=== PATIENT | male | born 1985 | race Caucasian/White ===

== ENCOUNTER 2019-09-12 17:13 | Inpatient (IN) | payer BC ==
--- NOTE | 2019-09-09 20:50 | NUR ---
Dr. Turcios contacted for patients v/s. BP 127/63, O2 sat 100 on 2L on Room Air. HR: 98, RR: 40, and s/s of SOB.
[~2019-09-12] VITALS: Ht 188 cm; Wt 86.2 kg
[2019-09-12] MEDS ORDERED: IV NORMAL SALINE 1000 ML BAG IV ONE ×2 (17:30→18:15)
[2019-09-12 17:35] LABS: BASOPHILS # (AUTO) 0.1 K/uL (0.0-8.0); BASOPHILS % (AUTO) 0.6 % (0.0-2.0); EOSINOPHILS % (AUTO) 0.4 % (0.0-7.0); HEMATOCRIT 24.6 % (36.7-47.1); HEMOGLOBIN 7.6 g/dL (12.5-16.3); LYMPHOCYTES # (AUTO) 2.1 K/uL (20.0-40.0); LYMPHOCYTES % (AUTO) 18.4 % (20.5-51.5); MEAN CORPUSCULAR HEMOGLOBIN 20.2 uug (23.8-33.4); MEAN CORPUSCULAR HGB CONC 31 g/dL (32.5-36.3); MEAN CORPUSCULAR VOLUME 65.8 fL (73.0-96.2); MONOCYTES # (AUTO) 1.1 K/uL (2.0-10.0); MONOCYTES % (AUTO) 9.2 % (0.0-11.0); NEUTROPHILS # (AUTO) 8.3 K/uL (1.8-8.9); NEUTROPHILS % (AUTO) 71.4 % (38.5-71.5); PLATELET COUNT (AUTO) 293 K/uL (152-348); RED BLOOD CELL COUNT(AUTO) 3.74 MIL/uL (4.06-5.63); WHITE BLOOD COUNT (AUTO) 11.6 K/uL (3.6-10.2)
[2019-09-12 17:50] LABS: ALANINE AMINOTRANSFERASE 39 U/L (16-63); ALKALINE PHOSPHATASE 85 U/L (50-136); ASPARTATE AMINOTRANSFERASE 45 U/L (15-37); BILIRUBIN,DIRECT 0.1 mg/dL (0.0-0.2); BILIRUBIN,TOTAL 0.9 mg/dL (0.2-1.0); CARBON DIOXIDE 27 mmol/L (21-32); CHLORIDE 95 mmol/L (98-107); CREATININE 0.9 mg/dL (0.6-1.3); GLUCOSE 85 mg/dL (74-106); POTASSIUM 4.3 mmol/L (3.5-5.1); TOTAL PROTEIN, SERUM 6.9 g/dL (6.4-8.2); UREA NITROGEN, BLOOD 17 mg/dL (7-18)
--- NOTE | 2019-09-12 17:50 | NUR ---
CHRISTY CASE was called. Patient was seen standing unsteadily and attempting to walk away from his gurney, mumbling words heard & does not follow simple commands.
[2019-09-12 17:52] LABS: ETHANOL < 3 MG/DL (0-0)
[2019-09-12] MEDS ORDERED: diphenhydrAMINE 50 MG/1 ML VIAL ONE (17:53)
[2019-09-12] MEDS ORDERED: OLANZAPINE 10 MG VIAL IM ONE ×2 (17:53→18:00)
--- NOTE | 2019-09-12 17:57 | NUR ---
Jennifer Downing/ called back. Per , she is currently in OR. Pt travelled to [place] to get treatment for Substance Abuse and Mental Health issues. provided patient history.
[2019-09-12 17:59] LABS: ACETAMINOPHEN < 2.0 ug/mL (10-30)
[2019-09-12] MEDS ORDERED: diphenhydrAMINE 50 MG/1 ML VIAL IM ONE (18:00)
[2019-09-12 18:11] LABS: *BLOOD, URINE NEGATIVE (NEGATIVE); *CLARITY,URINE CLEAR (CLEAR); *COLOR,URINE DARK YELLOW (YELLOW); *KETONES,URINE TRACE (NEGATIVE); LEUKOCYTE ESTERASE ,URINE NEGATIVE (NEGATIVE); NITRITE, URINE NEGATIVE (NEGATIVE); PH,URINE 5.5 (5.0-8.0); UGLUCOSE NEGATIVE (NEGATIVE)
[2019-09-12] MEDS ORDERED: PANTOPRAZOLE SODIUM 40 MG VIAL ONE (18:14)
[2019-09-12] MEDS ORDERED: PANTOPRAZOLE SODIUM 40 MG VIAL IV ONE (18:15)
[2019-09-12 18:21] LABS: *BILIRUBIN,URIN 1+ (NEGATIVE)
[2019-09-12 18:31] LABS: BAND % (MANUAL) 4 % (0-10); LYMPHOCYTES % (MANUAL) 20 % (20-40); MONOCYTES % (MANUAL) 3 % (2-10); NEUTROPHILS % (MANUAL) 73 % (42-75)
[2019-09-12 18:32] LABS: BACTERIA,URINE NONE SEEN /HPF (NONE SEEN); RBC,URINE 0-3 /HPF (0-3); SQUAMOUS EPITHELIAL CELL,UR FEW /HPF (NONE SEEN); WBC,URINE 0-3 /HPF (0-3)
[2019-09-12 18:46] LABS: *AMPHETAMINE, URINE POSITIVE (NEGATIVE); *BARBITURATE, URINE NEGATIVE (NEGATIVE); *CANNABINOID, URINE NEGATIVE (NEGATIVE); *COCCAINE, URINE NEGATIVE (NEGATIVE); *OPIATE, URINE POSITIVE (NEGATIVE); *PHENCYCLIDINE SCREEN,URINE NEGATIVE (NEGATIVE)
[2019-09-12] MEDS ORDERED: LORAZEPAM 2 MG/1 ML VIAL ONE (19:34)
[2019-09-12] MEDS ORDERED: MORPHINE SULFATE 2 MG/1 ML DISP.SYRIN IV PRN (20:30)
[2019-09-12] MEDS ORDERED: ONDANSETRON 4 MG/2 ML VIAL IV PRN (20:30)
[2019-09-12] MEDS ORDERED: LORAZEPAM 2 MG/1 ML VIAL IV PRN ×2 (20:30→21:30)
[2019-09-12] MEDS ORDERED: HALOPERIDOL LACTATE 5 MG/1 ML VIAL IM PRN (20:30)
[2019-09-12] MEDS ORDERED: ACETAMINOPHEN 325 MG TABLET PO PRN (20:30)
[2019-09-12] MEDS ORDERED: PIPERACILLIN SODIUM/TAZOBACTAM 3.375 G in IV DEXTROSE 5% 50 ML IV ONE (20:30)
--- NOTE | 2019-09-12 20:30 | NUR ---
Pt sent down to [place], RN at bedside.
[2019-09-12 20:43] LABS: IRON, SERUM 12 ug/dL (50-175)
--- NOTE | 2019-09-12 20:55 | NUR ---
patient received from ER. ID band on. IV patent and intact. belongings list completed. patient a/o x1. will continue to monitor and complete admissions process.
--- NOTE | 2019-09-12 21:00 | NUR ---
Dr. Turcios placed orders for droplet isolation. stat COVID-19 swab for throat and nose. start plaqenil 400 mg by mouth twice daily (tonight and tomorrow in AM) and 200 mg by mouth for 4 days afterwards. start zithromax 500 mg IV daily- give first dose now.
--- NOTE | 2019-09-12 21:16 | NUR ---
Pt. admitted to [facility] , under care of Dr. FLETCHER Belongs List completed. No acute distress noted. Safety precautions maintained.
[2019-09-12] MEDS ORDERED: PIPERACILLIN/TAZOBACTAM/D5W 100 ML IV ONE (21:41)
[2019-09-12] MEDS ORDERED: AZITHROMYCIN IV 500 MG in IV DEXTROSE 5% 250 ML IV SCH (21:45)
[2019-09-12] MEDS ORDERED: HYDROXYCHLOROQUINE SULFATE 200 MG TABLET PO SCH (21:45)
[2019-09-12 22:00] VITALS: BP 127/63
[2019-09-12] MEDS ORDERED: AZITHROMYCIN 500 MG VIAL IV ONE (22:06)
[2019-09-12] MEDS ORDERED: HYDROXYCHLOROQUINE SULFATE 200 MG TABLET ONE (22:11)
[2019-09-13] VITALS: BP 124/73
[2019-09-13] MEDS ORDERED: PIPERACILLIN SODIUM/TAZOBACTAM 3.375 G in IV DEXTROSE 5% 50 ML IV ONE ×2
[2019-09-13] MEDS ORDERED: PIPERACILLIN SODIUM/TAZOBACTAM 3.375 G in IV NORMAL SALINE 50 ML IV SCH (04:00)
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
[2019-09-13 05:52] LABS: BASOPHILS % (AUTO) 0.7 % (0.0-2.0); EOSINOPHILS # (AUTO) 0.1 K/uL (0.0-0.7); EOSINOPHILS % (AUTO) 1.5 % (0.0-7.0); HEMATOCRIT 25.1 % (36.7-47.1); HEMOGLOBIN 7.8 g/dL (12.5-16.3); LYMPHOCYTES # (AUTO) 2.1 K/uL (20.0-40.0); LYMPHOCYTES % (AUTO) 30.7 % (20.5-51.5); MEAN CORPUSCULAR HEMOGLOBIN 20.5 uug (23.8-33.4); MEAN CORPUSCULAR HGB CONC 31 g/dL (32.5-36.3); MEAN CORPUSCULAR VOLUME 66.4 fL (73.0-96.2); MONOCYTES # (AUTO) 0.7 K/uL (2.0-10.0); MONOCYTES % (AUTO) 9.4 % (0.0-11.0); NEUTROPHILS % (AUTO) 57.7 % (38.5-71.5); PLATELET COUNT (AUTO) 292 K/uL (152-348); RED BLOOD CELL COUNT(AUTO) 3.78 MIL/uL (4.06-5.63)
--- NOTE | 2019-09-13 06:00 | NUR ---
NURSING LIDDING MACHINE OPERATOR ADVISED OF PATIENT LEAVING AMA.
--- NOTE | 2019-09-13 06:05 | NUR ---
PATIENT LEFT AMA. ID BAND OFF. TRIED TO TAKE OUT IV LINE FROM PATIENT AND PATIENT JUST TOOK IT OFF BEFORE RN WAS ABLE TO. V/S STABLE AT TIME OF AMA. BP: 129/60, HR: 89, O2 SAT 100 ON 2L NC, RR: 18. PATIENT REFUSED TEMPERATURE. NO S/S OF ACUTE DISTRESS. NO SOB. PATIENT GAIT WAS WEAK AND UNABLE TO BALANCE HIMSELF. RN INFORMED PATIENT TO SIT DOWN PATIENT REFUSED. ADDITIONALLY, PATIENT WAS INFORMED TO GO TO LOBBY IN WHEELCHAIR, PATIENT REFUSED. PATIENT SIGNED [place] PAPERWORK AND BELONGINGS LIST. ASL INTERPRETER WALKED PATIENT OUT OF [facility] SAFELY. MASK WAS PLACED ON PATIENT WHEN LEAVING. Addendum: 09/13/19 at 0649 by J LUIS BARBOZA RN TELE MONITOR NSR AT TIME OF AMA.
[2019-09-13 06:08] LABS: BILIRUBIN,TOTAL 0.6 mg/dL (0.2-1.0); CREATININE 0.8 mg/dL (0.6-1.3); MAGNESIUM 1.8 mg/dL (1.8-2.4); PHOSPHOROUS 2.5 mg/dL (2.5-4.9); POTASSIUM 3.9 mmol/L (3.5-5.1); TOTAL PROTEIN, SERUM 6.3 g/dL (6.4-8.2)
--- NOTE | 2019-09-13 07:01 | NUR ---
INCIDENT REPORT COMPLETED.
--- NOTE | 2019-09-13 07:05 | NUR ---
SIGNED AMA PAPERWORK AND SIGNED BELONGINGS LIST COMPLETED.
[2019-09-13] MEDS ORDERED: PANTOPRAZOLE SODIUM 40 MG VIAL IV SCH (09:00)
[2019-09-13] MEDS ORDERED: HYDROXYCHLOROQUINE SULFATE 200 MG TABLET PO SCH (17:00)
== END 2019-09-13 06:05 | disposition left against medical advice (07) | DRG 871 ==
LOC: ER 17:15 → TELE3 20:22
PROVIDERS: ADMIT Internal Medicine; ATTEND Internal Medicine
DX: A41.9 Sepsis, unspecified organism (principal); J69.0 Pneumonitis due to inhalation of food and vomit; G92 Toxic encephalopathy; E87.1 Hypo-osmolality and hyponatremia; D50.9 Iron deficiency anemia, unspecified; E05.90 Thyrotoxicosis, unspecified without thyrotoxic crisis or storm; F10.20 Alcohol dependence, uncomplicated; F15.90 Other stimulant use, unspecified, uncomplicated; Y90.0 Blood alcohol level of less than 20 mg/100 ml; F43.10 Post-traumatic stress disorder, unspecified; J45.909 Unspecified asthma, uncomplicated; F11.90 Opioid use, unspecified, uncomplicated
CPT/HCPCS: 36415; 70030-TC; 71045; 71250; 80307; 83550; 83605; 83735; 84100; 84443; 85025; 87040; 87086; 87400; 93005; A4663; C9113; G0378; G0480; G0480-TC; J0456; J1200; J2060; J2358; J2543; J3490; J7030; J7040; J7060